=== PATIENT | female | born 1990 | race Caucasian/White ===

== ENCOUNTER 2020-05-31 02:21 | Emergency (ER) | payer SELFPAY ==
[~2020-05-31] VITALS: Ht 172.7 cm; Wt 59.1 kg
--- NOTE | 2020-05-31 02:26 | PHYS DOC ---
Past Medical History Smoking Status: Current Every Day Smoker Alcohol Use: Occasionally Drug Use: Amphetamine, Heroin, Methamphetamine, Opiates General Adult EDM: Chief Complaint: OVERDOSE HPI: HPI: Patient is a 30-year-old female who presents after an overdose. She reports at an unknown time today she snorted what she thought was a quarter of an oxycodone tablet. Per EMS the police department was called to the scene when the patient became unresponsive and CPR was started. ~20 compressions were given and then IM 4mg Narcan administered with improvement of symptoms/responsiveness. When EMS arrived at the scene they reportedly gave her a hard sternal rub at which point she became responsive. EMS also administered 4 mg of Zofran on arrival. EMS reports on the ride over she has been talking and mentating well and has had no further apneic or unresponsive events. On exam she complained of being cold, however denies complaints of chest pain, shortness of breath, nausea, vomiting, diarrhea, changes in urination, changes in defecation. Reports that tonight she was trying to "have fun" and was not using an overdose as a suicidal attempt and currently has no SI or HI. Reports no daily medications. Review of Systems: Review of Systems: Fourteen body systems of review of systems have been reviewed. See HPI for pertinent positives and negative responses, other leyva all other systems are negative, non-pertinent or non-contributory Heart Score: C/O Chest Pain: No Risk Factors: Risk Factors: DM, Current or recent (<one month) smoker, HTN, HLP, family history of CAD, obesity. Risk Scores: Score 0 - 3: 2.5% MACE over next 6 weeks - Discharge Home Score 4 - 6: 20.3% MACE over next 6 weeks - Admit for Clinical Observation Score 7 - 10: 72.7% MACE over next 6 weeks - Early Invasive Strategies Physical Exam: PE: Constitutional: Well developed, well nourished, no acute distress, non-toxic appearance. HENT: Normocephalic, atraumatic, bilateral external ears normal, oropharynx dry, poor dentition, no oral exudates, nose normal. Eyes: PERRLA, EOMI, conjunctiva normal, no discharge. Neck: Normal range of motion, no tenderness, supple, no stridor. Cardiovascular: Heart rate regular, sinus rhythm, no murmurs rubs or gallops, no palpable chest wall abnormalities Lungs & Thorax: Bilateral breath sounds clear to auscultation Abdomen: Bowel sounds normal, soft, no tenderness, no masses, no pulsatile masses. Nonsurgical abdomen, no peritoneal signs Skin: Warm, dry, no erythema, no rash. Back: No tenderness, no CVA tenderness. Extremities: No tenderness, no cyanosis, no clubbing, ROM intact, no edema. Neurologic: Alert and oriented X 3, normal motor & sensory function, no focal deficits noted. Psychologic: Affect normal, judgement normal, mood normal. Current Patient Data: Vital Signs: Vital Signs Date Time Temp Pulse Resp B/P (MAP) Pulse Ox O2 Delivery O2 Flow Rate FiO2 05/31/20 02:29 116 20 99 05/31/20 02:34 98.7 135/108 (117) Room Air 98.7 Vital Signs Date Time Temp Pulse Resp B/P (MAP) Pulse Ox O2 Delivery O2 Flow Rate FiO2 05/31/20 03:02 118 22 98 05/31/20 02:34 98.7 135/108 (117) Room Air 98.7 EKG: EKG: [] Radiology/Procedures: Radiology/Procedures: [] Course & Med Decision Making: Course & Med Decision Making Patient is a 30-year-old female who presents after an overdose attempt. Patient was slightly tachycardic on exam at around 122 but other vitals were within normal limits and patient was nonfebrile. Physical exam displayed no abnormalities. Because compressions were performed CBC, CMP, troponin, chest x- ray, chest x-ray, and urine test were obtained. While the patient was being evaluated she reported that she wanted to leave AGAINST MEDICAL ADVICE. She had full capacity after formal evaluation by myself. Was able to weigh risks and benefits of staying for workup/treatment vs discharging home. She vocalized understanding of the risks of doing so, and did state that she had a primary care physician that she could follow-up with. Refused any diagnostic studies due to fear of cost. Patient signed out AMA. Patient left prior to receiving any paperwork Dragon Disclaimer: Dragon Disclaimer: This electronic medical record was generated, in whole or in part, using a voice recognition dictation system. Departure Departure Impression: Primary Impression: Left against medical advice Additional Impression: Overdose Disposition: HOME / SELF CARE / HOMELESS Condition: GUARDED MY OCONNOR DO May 31, 2020 02:26
[2020-05-31 03:02] VITALS: BP 131/95
== END 2020-05-31 03:02 | disposition left against medical advice (07) ==
LOC: ER 02:21
DX: T40.2X4A Poisoning by other opioids, undetermined, initial encounter (principal); Y92.89 Other specified places as the place of occurrence of the external cause
CPT/HCPCS: 99284